=== PATIENT | male | born 1980 | race Caucasian/White ===

== ENCOUNTER 2020-08-16 11:31 | Emergency (ER) | payer OTHER ==
[~2020-08-16] VITALS: Ht 154.9 cm; Wt 84.5 kg
[2020-08-16] MEDS ORDERED: ACET-683 PO (11:46)
[2020-08-16 14:10] LABS: INFLUENZA A AMPLIFICATION NEGATIVE (NEGATIVE); INFLUENZA B AMPLIFICATION NEGATIVE (NEGATIVE)
[2020-08-16 15:16] VITALS: BP 128/71
== END 2020-08-16 15:17 | disposition home or self-care (01) ==
LOC: M ED 11:31
DX: J06.9 Acute upper respiratory infection, unspecified (principal); B34.9 Viral infection, unspecified; Z20.828 Contact with and (suspected) exposure to other viral communicable diseases
CPT/HCPCS: 87502; 99284; U0003

== ENCOUNTER 2021-12-05 08:28 | Emergency (ER) | payer OTHER ==
[~2021-12-05] VITALS: Ht 154.9 cm; Wt 81.8 kg
[~2021-12-05 08:28] MED LIST: ACET-683 PO
[2021-12-05 08:30] VITALS: BP 125/75
[2021-12-05] MEDS ORDERED: IBUP200C25 PO (08:35)
[2021-12-05 14:16] LABS: GC DNA AMPLIFICATION NEGATIVE (NEGATIVE)
[2021-12-05] MEDS ORDERED: LEVO500T4 PO (14:31)
[2021-12-05] MEDS ORDERED: LevoFLOXacin 500 MG TABLET PO ONE (14:35)
== END 2021-12-05 14:44 | disposition home or self-care (01) ==
LOC: M ED 08:28
DX: N45.1 Epididymitis (principal); F10.10 Alcohol abuse, uncomplicated

== ENCOUNTER → 2022-09-07 | Outpatient (CLI) | payer OTHER ==
[~2022-09-07] MED LIST changes: +IBUP200C25 PO; +LEVO1TAB39 PO
== END ==
LOC: M LABSMTC 09:37
PROVIDERS: ATTEND Anesthesiology
DX: Z20.828 Contact with and (suspected) exposure to other viral communicable diseases (principal); Z11.59 Encounter for screening for other viral diseases

== ENCOUNTER 2022-09-10 11:27 | Day surgery (SDC) | payer OTHER ==
[~2022-09-10] VITALS: Ht 154.9 cm; Wt 83.4 kg
[~2022-09-10 11:27] MED LIST changes: +NS 1,000 ML IV ONE
[2022-09-10] MEDS ORDERED: LIDOCAINE 2% 100MG/5ML SDV (FOR ANES.) As Ordered ONE (12:17)
[2022-09-10] MEDS ORDERED: propofoL 200 MG/20 ML VIAL As Ordered ONE (12:17)
[2022-09-10 14:03] VITALS: BP 96/57
== END 2022-09-10 14:05 | disposition home or self-care (01) ==
LOC: M OPP 11:27
PROVIDERS: ATTEND Internal Medicine Gastroenterology
DX: Z12.11 Encounter for screening for malignant neoplasm of colon (principal); Z80.0 Family history of malignant neoplasm of digestive organs; K64.0 First degree hemorrhoids; Z79.1 Long term (current) use of non-steroidal anti-inflammatories (NSAID); Z87.891 Personal history of nicotine dependence

== ENCOUNTER 2023-04-18 08:21 | Emergency (ER) | payer OTHER ==
[~2023-04-18] VITALS: Ht 154.9 cm; Wt 82.4 kg
[2023-04-18 08:21] VITALS: BP 125/80; TEMP 98; O2SAT 96
[~2023-04-18 08:21] MED LIST changes: -NS 1,000 ML IV ONE
== END 2023-04-18 13:00 | disposition home or self-care (01) ==
LOC: M ED 08:21
DX: S76.911A Strain of unspecified muscles, fascia and tendons at thigh level, right thigh, initial encounter (principal); K64.8 Other hemorrhoids; F10.10 Alcohol abuse, uncomplicated; Z79.1 Long term (current) use of non-steroidal anti-inflammatories (NSAID)